=== PATIENT | male | born 1975 | race Hispanic/Latino ===

== ENCOUNTER 2023-02-03 09:15 | Emergency (ER) | payer SELFPAY ==
[~2023-02-03] VITALS: Ht 157.5 cm; Wt 80.3 kg
[2023-02-03] MEDS ORDERED: KETOROLAC TROMETHAMINE 30 MG/ML VIAL IV ONE (09:39)
[2023-02-03] MEDS ORDERED: KETOROLAC TROMETHAMINE 30 MG/ML VIAL ONE (09:44)
[2023-02-03] MEDS ORDERED: HYDROCODONE/APAP 5MG-325MG TAB ONE (09:44)
[2023-02-03] MEDS ORDERED: HYDROCODONE/APAP 5MG-325MG TAB PO ONE (09:45)
[2023-02-03] MEDS ORDERED: METHOCARBAMOL500 MG PO (10:50)
[2023-02-03] MEDS ORDERED: NAPROSYN500 MG PO (10:58)
[2023-02-03 11:00] VITALS: O2SAT 97
== END 2023-02-03 11:05 | disposition home or self-care (01) ==
LOC: FSED 09:19
DX: M43.6 Torticollis (principal); R07.9 Chest pain, unspecified; M25.511 Pain in right shoulder; F17.200 Nicotine dependence, unspecified, uncomplicated
CPT/HCPCS: 71046; 80053; 82553; 84484; 85025; 93005; 96374; 99283; J1885